=== PATIENT | male | born 1985 | race Caucasian/White ===

== ENCOUNTER → 2021-01-17 10:35 | Outpatient (POV) | payer BC, SELFPAY | PROVIDERS: Visit Provider Otolaryngology | DX: Z00.00 Encounter for general adult medical examination without abnormal findings (principal) ==

== ENCOUNTER → 2021-04-06 10:35 | Outpatient (CLI) | payer BC, SELFPAY ==
--- NOTE | 2021-04-06 10:39 | XR_ITS ---
PROCEDURE: XR SHOULDER RT MIN 2V CLINICAL INDICATION: ACUTE PAIN OF RT SHOULDER COMPARISON: No exams were available for comparison FINDINGS: No fracture or dislocation. No lytic or blastic change. There is normal mineralization. The joint spaces are well-preserved. No significant degenerative/arthritic changes. No erosive changes evident. Other findings:None. IMPRESSION: Negative right shoulder. Dictated by: Deion Gonzalez MD 04/06/2021 11:11 Deion Gonzalez MD in [place] 04/06/2021 11:11
== END ==
PROVIDERS: PCP Family Medicine; Visit Provider Family Medicine
DX: M25.511 Pain in right shoulder (principal)
CPT/HCPCS: 73030

== ENCOUNTER → 2021-09-07 09:30 | Outpatient (CLI) | payer BC, SELFPAY ==
[2021-09-07 10:13] LABS: Basophils # 0.1 K/mm3 (0-0.2); Basophils % 0.9 % (0.1-2.0); Eosinophils # 0.2 K/mm3 (0.0-0.4); Eosinophils % 3.7 % (0.1-12.0); Hematocrit 46.3 % (42.0-52.0); Hemoglobin 15.3 g/dL (14.1-18.0); Lymphocytes # 2.2 K/mm3 (0.7-4.5); Mean Corpuscular HGB Conc 33.1 g/dL (31.8-35.4); Mean Corpuscular Hemoglobin 30.7 pg (27.0-31.2); Mean Corpuscular Volume 92.7 fl (80-94); Mean Platelet Volume 8.6 fl (7.4-10.4); Monocytes # 0.4 K/mm3 (0.1-1.0); Monocytes % 6.2 % (1.7-9.3); Neutrophils # 3.1 K/mm3 (1.8-7.8); Neutrophils % 52.1 % (37.0-80.0); Platelet Count 221 K/mm3 (142-424); Red Cell Distribution Width 12.3 % (11.5-17.5)
[2021-09-07 11:03] LABS: Strep Scrn Group A (Rapid) Negative (Negative)
== END ==
PROVIDERS: Visit Provider Physician Assistant
DX: J02.9 Acute pharyngitis, unspecified (principal)
CPT/HCPCS: 36415; 85025; 87430

== ENCOUNTER 2023-01-28 21:22 | Emergency (ER) | payer BC, SELFPAY ==
[2023-01-28 21:45] VITALS: BP 130/72; PULSE 69; RESP 18; TEMP 36.5; O2SAT 98; BMI 27.9
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
[2023-01-28 23:01] VITALS: BP 130/72; PULSE 72; RESP 16; TEMP 36.6; O2SAT 99
== END 2023-01-28 23:03 | disposition home or self-care (01) ==
PROVIDERS: Emergency Provider Emergency Medicine; PCP Family Medicine
DX: S61.011A Laceration without foreign body of right thumb without damage to nail, initial encounter (principal); W26.0XXA Contact with knife, initial encounter
CPT/HCPCS: 12041; 99282; 99283

== ENCOUNTER → 2023-03-29 23:31 | Outpatient (CLI) | payer BC, SELFPAY | PROVIDERS: PCP Student in an Organized Health Care Education/Training Program; Visit Provider Student in an Organized Health Care Education/Training Program | DX: J02.9 Acute pharyngitis, unspecified (principal) ==

== ENCOUNTER → 2023-07-15 15:47 | Outpatient (CLI) | payer BC, SELFPAY ==
[2023-07-15 15:58] LABS: Adenovirus F 40/41, stool Not Detected (NotDetected); Astrovirus Not Detected (NotDetected); Campylobacter Not Detected (NotDetected); Clostridium Difficile A/B, PCR Not Detected (NotDetected); Cryptosporidium Not Detected (NotDetected); Cyclospora Cayetanesis Not Detected (NotDetected); Entamoeba histolytica Not Detected (NotDetected); Enteroaggregative E coli Not Detected (NotDetected); Enteropathogenic E coli Not Detected (NotDetected); Enterotoxigenic E coli Not Detected (NotDetected); Giardia lamblia Not Detected (NotDetected); Norovirus Not Detected (NotDetected); Plesimonas Shigalloides, PCR Not Detected (NotDetected); Rotavirus A Not Detected (NotDetected); Salmonella, PCR Not Detected (NotDetected); Sapovirus Not Detected (NotDetected); Shiga-like toxin E coli Not Detected (NotDetected); Shigella Enterovasive E coli Not Detected (NotDetected); Vibrio Cholerae Not Detected (NotDetected); Vibrio, PCR Not Detected (NotDetected); Yersinia Entercolitica, PCR Not Detected (NotDetected)
== END ==
PROVIDERS: PCP Physician Assistant; Visit Provider Nurse Practitioner Family
DX: R19.7 Diarrhea, unspecified (principal)
CPT/HCPCS: 87507

== ENCOUNTER → 2023-08-19 15:31 | Outpatient (CLI) | payer BC, SELFPAY ==
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
== END ==
PROVIDERS: PCP Family Medicine; Visit Provider Family Medicine
DX: M79.641 Pain in right hand (principal)
CPT/HCPCS: 73130

== ENCOUNTER → 2023-10-08 14:16 | Outpatient (CLI) | payer BC, SELFPAY ==
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
== END ==
PROVIDERS: PCP Family Medicine; Visit Provider Orthopaedic Surgery
DX: M79.641 Pain in right hand (principal); S62.34 Nondisplaced fracture of base of other metacarpal bone
CPT/HCPCS: 73130

== ENCOUNTER 2024-11-25 10:56 | Outpatient (CLI) | payer BC, SELFPAY | END 2024-11-25 23:59 | disposition home or self-care (01) | LOC: LAB.DROPOF 11-26 09:18 | PROVIDERS: PCP Nurse Practitioner Family; Visit Provider Nurse Practitioner Family | DX: J02.9 Acute pharyngitis, unspecified (principal) | CPT/HCPCS: 87070; 87077; 87186 ==

== ENCOUNTER 2025-10-20 15:11 | Outpatient (CLI) | payer BC, SELFPAY ==
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
--- OUTSIDE RECORDS SUMMARY | 2025-10-19 11:45 | XMS_ITS ---
Author Organization Johnny Address [address] [facility] [address] [place] [id number] Care Team Providers Care Mobile Nurse Name Role Phone Gabriel Mckinney Primary Care Provider Rhina Saba [phone] Allergies No Known Allergies REASON FOR VISIT diarrhea Medications Medication SIG (Take, Route, Frequency, Duration) Notes Start Date End Date Status Ciprofloxacin HCl 500 MG 1 tablet Orally every 12 hrs 10/19/2025 Active Problems Problem Type SNOMED Code ICD Code Onset Dates Problem Status W/U Status Risk Notes Problem Vitamin deficiency (35541302) Vitamin deficiency (E56.9) Active confirmed Vital Signs Blood pressure systolic 120 mm Hg 10/19/20 25 Blood pressure diastolic 72 mm Hg 025 Heart Rate 93 /min 10/19/2025 Height 70 in 10/19/2025 Weight 171 lbs 10/19/2025 BMI 24.53 kg/m2 10/19/2025 Encounters Encounter Location Date Provider Diagnosis [facility] [address] [place] [id number] 10/19/2025 Rhina Saba Diarrhea R19.7 ; Screening for diabetes mellitus Z13.1 ; Screening for lipid disorders Z13.220 and Vitamin deficiency E56.9 Assessments Encounter Date Diagnosis (ICD Code) Assessment Notes Treatment Notes Treatment Clinical Notes Section Notes 10/19/2025 Diarrhea (ICD-10 - R19.7) 10/19/2025 Screening for diabetes mellitus (ICD-10 - Z13.1) 10/19/2025 Screening for lipid disorders (ICD-10 - Z13.220) 10/19/2025 Vitamin deficiency (ICD-10 - E56.9) Plan Of Treatment Medication Medication Name Sig Start Date Stop Date Notes Ciprofloxacin HCl 500 MG 1 tablet Orally every 12 hrs 10/04 Pending Test Test Name Order Date H-CBC 10/19/2025 H-VITAMIN D 10/19/2025 H-Lipid Panel 10/19/2025 H-CMP 10/19/2025 H-Glycohemoglobin A1C 10/19/2025 H-DIARRHEA PANEL 10/19/2025 Next Appt Details Follow Up: via phone to repo rt test results, Reason: Progress Notes * DENAE GRULLONDOB: 6 (40 yo M)Acc No.[id number]:10/19/2025 Progress Notes Patient: DENAE AARON Provider: Rhina Saba M.D. :1985 A ge:40 Y S ex:Male Date:10/19/2025 Address:[address] [place] [address], [id number] Pcp:Gabriel Mckinney Subjective: * Chief Complaints: * 1 . Diarrhea. * HPI: G astroenterology: Starting on 10/11/2025, he had issues with constipation and after couple days of laxative. Since then he has been having watery diarrhea multiple times per day. He has noted some mucus in the stool but no blood. He has had some associated abdominal cramping. No fever. No vomiting but appetite has been diminished. He has been taking liquids well. He generally eats healthy but does note that he drinks raw, unpasteurized milk. H PI: He would like to have some routine blood work for health maintenance and because of family history of diabetes. * ROS: D ERMATOLOGY: no R elias. n o H ruiz. G ASTROENTEROLOGY: no N ausea. n o V omiting. n o D iarrhea.? U ROLOGY: no B lood in urine. n o F requent urination. ? * Medical History: H SV 1 genital, [...] Objective: * Vitals: W t: 171, Temp: 98.5, BP: 120/72, HR: 93, Nurse: paty, Ht: 70, BMI:24.53. * Examination: G eneral Examination: General Appearance: N AD. H eart: R SR. L ungs:?clear to auscultation. A bdomen: s oft, not distended, bowel sounds present but decreased. Mild diffuse tenderness. Assessment: * Assessment: 1. D iarrhea - R19.7 (Primary) 2 . S creening for diabetes mellitus - Z13.1? 3. S creening for lipid disorders - Z13.220 4 . V itamin deficiency - E56.9 Plan: * Treatment: * Labs: * L ab: H-Lipid Panel L ab: H-CMP L ab: H-CBC L ab: H-VITAMIN D L ab: H-DIARRHEA PANEL L ab: H-Glycohemoglobin A1C * Follow Up: v ia phone to report test results * Images: Billing Information: * Visit Code: 86385 Office Visit, Est Pt., Level 4. * Procedure Codes: * Electronic signature of Rhina Saba MD on 10/20/2025 at 04:21 PM EST Sign off status: Pending * Provider: Rhina Saba M.D. Date: 12/20/2024 Generated for Jil jsohua/Iman/Aishwarya on: 12/21/2024 04:21 PM EST History and Physical Notes * Examination Category Sub-Category Detail Notes Category Not es General Examination Heart: RSR Lungs: clear to auscultatio n Abdomen: soft, not distended, bowel sounds present but decreased. Mild diffuse tenderness General Appearance: NAD
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
[2025-10-21 00:01] LABS: C. difficile PCR (HMH) Negative (Neagtive)
[2025-10-21 15:24] LABS: Adenovirus F 40/41, stool Not Detected (NotDetected); Clostridium Difficile A/B, PCR Not Detected (NotDetected); Cyclospora Cayetanesis Not Detected (NotDetected); Plesimonas Shigalloides, PCR Not Detected (NotDetected); Salmonella, PCR Not Detected (NotDetected); Shiga-like toxin E coli Not Detected (NotDetected); Shigella Enterovasive E coli Not Detected (NotDetected); Vibrio, PCR Not Detected (NotDetected); Yersinia Entercolitica, PCR Not Detected (NotDetected)
== END 2025-10-20 23:59 | disposition home or self-care (01) ==
LOC: LAB 15:12
PROVIDERS: PCP Family Medicine; Visit Provider Family Medicine
DX: R19.7 Diarrhea, unspecified (principal)
CPT/HCPCS: 87493; 87507